=== PATIENT | female | born 1990 | race Two or more races ===

== ENCOUNTER 2019-12-04 14:33 | Inpatient (IN) ==
[2019-12-04] MEDS ORDERED: OXYTOCIN 30 UNITS/500 ML BAG IV PRN ×2 (15:43→18:13)
[2019-12-04 16:07] LABS: Hematocrit (blood only) 35.1 % (37-47); Hemoglobin 11.3 g/dL (12.0-16.0); Mean Corpuscular Hemoglobin 28.9 pg (25-34); Mean Corpuscular Volume 89.8 fL (80-100); Mean Platelet Volume 12.3 fL (7.4-10.4); Platelet Count 235 K/uL (130-400); RDW Coefficient of Variation 13.6 % (11.5-14.5); RDW Standard Deviation 44.5 fL (36.4-46.3); Red Blood Count 3.91 M/uL (4.2-5.4); White Blood Count 10.37 K/uL (4.8-10.8)
[2019-12-04 16:36] LABS: Mean Corpuscular Hgb Conc 32.2 g/dL (32-36)
--- NOTE | 2019-12-04 18:25 | Obstetrical Progress Note ---
Date of Service December 04, 2019 Assessment & Plan Admission and Anticipated Discharge Date Admission Date: December 04, 2019 Physical Exam Physical Exam: Admit Note 29 F P0000 at 37.6 wks admitted with SROM clear fluid. FHT CAT 1. GBS is negative. Will start Oxytocin to augment contractions. Results & Data ([facility]) Vital Signs (Past 12 Hours) Vital Signs Temp Pulse Resp BP 12/04/19 15:23 121 H 134/88 12/04/19 14:47 37.2 C 16 12/04/19 14:46 129 H 138/86
[2019-12-04] MEDS: LACTATED RINGER'S 1,000 ML IV PRN ×2 (18:37→21:08)
[2019-12-04] MEDS ORDERED: fentaNYL 2MCG/ML ROPIV 1.25MG/ML 100 ML BAG EPI ONE (20:20)
[2019-12-04] MEDS ORDERED: fentaNYL citrate 100 MCG/2 ML VIAL ONE (20:20)
[2019-12-04] MEDS ORDERED: ePHEDrine sulfate 50 MG/ML AMP ONE (20:20)
[2019-12-04] MEDS ORDERED: BUPIVACAINE 0.25% 30 ML VIAL ONE (20:20)
--- NOTE | 2019-12-04 20:57 | Anesthesiology Consultation ---
Date of Service December 04, 2019 Assessment & Plan Chart Review Chart Review: Patient NOT seen in Pre Admission Testing and Acceptable Risk for Labor Epidural Consults Requested none ASA ASA2 Proposed Anesthesia Anesthesia Type: Labor Epidural and CSE Additional Comments: not covid tested History Height/Weight Height: 5 ft 4 in Weight: 101.605 kg Allergies Allergy/AdvReac Type Severity Reaction Status Date / Time No Known Allergies Allergy Verified 12/04/19 14:54 Medications Home Medications Medication Instructions Recorded Confirmed Last Taken PNV [id number] fumarate-FA 1 tab PO DAILY 12/04/19 12/04/19 12/03/19 21:00 [] docusate sodium [Colace] 100 mg PO DAILY 12/04/19 12/04/19 Unknown Active Medications Generic Name Dose Route Start Last Admin Trade Name Freq PRN Reason Stop Dose Admin Lactated Ringer's 1,000 mls @ 125 mls/hr 12/04/19 15:43 12/04/19 20:18 Lr IV 12/06/19 15:42 999 mls/hr .Q8H PRN Infusion L&D Protocol Protocol Oxytocin 30 units in 500 mls @ 7 mls/hr 12/04/19 18:13 12/04/19 20:15 Pitocin IV 12/06/19 18:12 0.42 units/hr .Q24H PRN 7 mls/hr Labor Induction/Augmentation Titration Protocol 0.42 UNITS/HR Past Medical History Medical History (Updated 12/04/19 @ 20:55 by Myron Blackburn MD) Anemia affecting GERD (gastroesophageal reflux disease) Marijuana abuse No known health problems Obesity Exercise / Class Metabolic Activity II 4-5 Yardwork/Stairs/Walk up hill Past Family History Family History Grandmother (Maternal) Cancer of esophagus Past Surgical History Surgical History Hx of tonsillectomy Hx of wisdom tooth extraction Past Anesthesia History No Hx of Anesthesia Complications and No Family Hx of Anesthesia Complications History of PONV No Hx of PONV and No Hx of Motion Sickness Social History Smoking Status: Never smoker Hx Alcohol Use: No Hx Substance Use: Yes substance use type: marijuana Substance Use Type Other:: prior to Physical Exam Vital Signs Last Vital Signs Temp 37.0 C 12/04/19 19:03 Pulse 93 H 12/04/19 20:03 Resp 18 12/04/19 20:03 BP 121/82 12/04/19 20:03 Testing Laboratory Results 12/04/19 15:57
[2019-12-04] MEDS ORDERED: fentaNYL 2MCG/ML ROPIV 1.25MG/ML 100 ML BAG EPI PRN (21:26)
[2019-12-04] MEDS ORDERED: NALOXONE HCL 0.4 MG/1 ML VIAL/CARP IV PRN (21:26)
[2019-12-04] MEDS ORDERED: ONDANSETRON INJ 2 MG/ML 2 ML VIAL IV PRN (21:26)
[2019-12-04] MEDS ORDERED: PROMETHAZINE HCL 25 MG in SODIUM CHLORIDE 0.9% 50 ML IV PRN (21:26)
[2019-12-04] MEDS ORDERED: ePHEDrine sulfate 50 MG/ML AMP IV PRN (21:26)
[2019-12-04] MEDS ORDERED: NALOXONE HCL 1 MG in SODIUM CHLORIDE 0.9% 1000ML 1,000 ML IV PRN (21:26)
[2019-12-04] MEDS ORDERED: DiphenhydrAMINE HCL 50 MG/ML VIAL IV PRN (21:26)
--- NOTE | 2019-12-04 21:41 | Obstetrical Progress Note ---
Date of Service December 04, 2019 Assessment & Plan Admission and Anticipated Discharge Date Admission Date: December 04, 2019 Physical Exam Genitourinary: Manual OB Exam: + cervical dilation 6 cm and 7 cm, + cervical effacement 80%, + station -1 and + amniotic fluid clear OB Exam Monitor Tracing: + external FHT monitor used, + external uterine monitor used, + categor y I and + normal FHT variability Results & Data ([facility]) Vital Signs (Past 12 Hours) Vital Signs Temp Pulse Resp BP Pulse Ox 12/04/19 21:39 107 H 125/80 12/04/19 21:36 85 123/60 99 12/04/19 21:34 90 120/63 12/04/19 21:32 90 118/68 12/04/19 21:31 100 H 117/64 98 12/04/19 21:29 87 127/62 12/04/19 21:27 91 H 123/58 L 12/04/19 21:26 91 H 100 12/04/19 21:25 98 H 125/56 L 12/04/19 21:23 97 H 130/71 12/04/19 21:21 97 H 144/81 H 100 12/04/19 21:16 105 H 100 12/04/19 21:11 100 H 99 12/04/19 21:06 101 H 144/84 H 99 12/04/19 21:03 104 H 145/91 H 12/04/19 21:00 36.6 C 12/04/19 20:03 93 H 18 121/82 12/04/19 19:03 37.0 C 89 18 120/78 12/04/19 18:38 99 H 122/84 12/04/19 18:25 94 H 138/90 12/04/19 17:00 37.2 C 16 12/04/19 15:23 121 H 134/88 12/04/19 14:47 37.2 C 16 12/04/19 14:46 129 H 138/86
--- NOTE | 2019-12-04 23:44 | Delivery Summary ---
Vaginal Delivery Summary Date of Service December 04, 2019 Supervising Physician Co-Signing Physician Notes Delivery note live female GOOD over intact perineum with Apgars 8/10 weight pending. Cord blood obtained followed by spontaneous delivery of intact placenta. No tears. EBL 200 ml. Final sponge and instrument count are correct. Mom and baby stable.
--- NOTE | 2019-12-05 00:21 | Anesthesia Procedure Note ---
Date of Service December 05, 2019 Anesthesia Post Epidural Note Vital Signs Vital Signs: Temp Pulse Resp BP Pulse Ox 37.0 C 93 H 18 116/59 L 94 12/04/19 22:55 12/05/19 00:08 12/05/19 00:08 12/05/19 00:08 12/04/19 23:28 Notes Mental Status: alert / awake / arousable and participated in evaluation Nausea / Vomiting: adequately controlled Pain: adequately controlled Airway Patency, RR, SpO2: stable & adequate BP & HR: stable & adequate Hydration State: stable & adequate Neuraxial Anesthesia: was administered and sensory block is resolving Anesthetic Complications: no major complications apparent and Pt Satisfied with anesthetic care Epidural: Removed without complications and With tip intact Notes: Epidural site clean, dry and intact. No signs of edema, erythema or bruising at insertion site. Pt instructed to request anesthesia if she has residual lower extremity numbness or if she develops lower extremity pain or weakness, back pain or headache.
[2019-12-05] MEDS ORDERED: BENZOCAINE 20% AER SPR 82.5 GM CAN EXT PRN (01:48)
[2019-12-05] MEDS ORDERED: DIPHTHERIA/TETANUS/PERTUSSIS 0.5 ML SYR/VIAL IM ONE (01:48)
[2019-12-05] MEDS ORDERED: HYDROCORTISONE ACETATE 25 MG SUPP PR PRN (01:48)
[2019-12-05] MEDS ORDERED: bisacodyL 10 MG SUPP PR PRN (01:48)
[2019-12-05] MEDS ORDERED: ACETAMINOPHEN 325 MG TAB PO PRN (01:48)
[2019-12-05] MEDS ORDERED: SUPERCREAM 0.870% 15 GM JAR EXT PRN (01:48)
[2019-12-05] MEDS ORDERED: OXYTOCIN 30 UNITS/500 ML BAG IV PRN (01:48)
[2019-12-05] MEDS ORDERED: IBUPROFEN 600 MG TAB PO ONE (01:50)
[2019-12-05 05:48] LABS: Hematocrit (blood only) 32.1 % (37-47); Hemoglobin 10.5 g/dL (12.0-16.0); Mean Corpuscular Hemoglobin 29.3 pg (25-34); Mean Corpuscular Hgb Conc 32.7 g/dL (32-36); Mean Corpuscular Volume 89.7 fL (80-100); Mean Platelet Volume 12.6 fL (7.4-10.4); Platelet Count 222 K/uL (130-400); RDW Coefficient of Variation 13.6 % (11.5-14.5); RDW Standard Deviation 44.6 fL (36.4-46.3); Red Blood Count 3.58 M/uL (4.2-5.4); White Blood Count 16.16 K/uL (4.8-10.8)
[2019-12-05] MEDS: DOCUSATE SODIUM 100 MG CAP PO SCH ×2 (07:36→20:38)
[2019-12-05] MEDS: PRENATAL VITAMIN 1 TAB PO SCH (07:36)
[2019-12-05] MEDS: IBUPROFEN 600 MG TAB PO PRN ×3 (07:37→20:38)
[2019-12-05] MEDS ORDERED: NON-FORMULARY MEDICATION (Pnv Cmb#95-Ferrous Fumarate-Fa [Prenatal] 1 TAB) PO SCH (09:00)
[2019-12-05] MEDS ORDERED: DOCUSATE SODIUM 100 MG CAP PO SCH (09:00)
[2019-12-05] MEDS ORDERED: bisacodyL 5 MG TABEC PO SCH (20:00)
[2019-12-06 06:07] LABS: Hematocrit (blood only) 31.7 % (37-47); Hemoglobin 10.3 g/dL (12.0-16.0)
[2019-12-06] MEDS: IBUPROFEN 600 MG TAB PO PRN (07:14)
[2019-12-06] MEDS: PRENATAL VITAMIN 1 TAB PO SCH (07:49)
[2019-12-06] MEDS: DOCUSATE SODIUM 100 MG CAP PO SCH (07:49)
--- NOTE | 2019-12-06 09:02 | Obstetrical Progress Note ---
Date of Service December 06, 2019 Assessment & Plan Admission and Anticipated Discharge Date Admission Date: December 04, 2019 Physical Exam Constitutional: WD/WN, vitals as above comfortable Fundus firm no edema neg Janee's for d/c Results & Data ([facility]) Vital Signs (Past 12 Hours) Vital Signs Temp Pulse Resp BP 12/06/19 08:46 36.6 C 70 16 127/83 12/06/19 00:30 36.7 C 74 18 126/67 Laboratory Results Laboratory Results - last 72 hr 12/04/19 12/05/19 12/06/19 15:57 05:23 05:28 WBC 10.37 16.16 H RBC 3.91 L 3.58 L Hgb 11.3 L 10.5 L 10.3 L Hct 35.1 L 32.1 L 31.7 L MCV 89.8 89.7 MCH 28.9 29.3 MCHC 32.2 32.7 RDW Std Deviation 44.5 44.6 RDW Coeff of Beltran 13.6 13.6 Plt Count 235 222 MPV 12.3 H 12.6 H
== END 2019-12-06 12:04 | disposition home or self-care (01) | DRG 807 ==
LOC: OPB 14:33 → 4S1 14:38 → 4S2 12-05 02:03